=== PATIENT | male | born 1955 | race Caucasian/White ===

== ENCOUNTER → 2022-02-21 | Outpatient (CLI) | payer MEDICARE ==
--- NOTE | 2022-02-22 08:14 | MR ---
EXAMINATION TYPE: MR lumbar spine wo con DATE OF EXAM: 02/21/2022 8:14 PM COMPARISON: None. CLINICAL INDICATION:Male, 66 years old with history of M47.896 SPONDYLOSIS, LUMBAR; TECHNIQUE: Multi planar, multi sequence imaging was performed utilizing: T1-weighted, T2-weighted, a nd turbo inversion recovery imaging of the lumbar spine. IV Contrast: None FINDINGS: Alignment: The lumbar vertebral bodies have preserved heights with grade 1 anterolisthesis of L5 on S 1 and L4 on L5. Cord: The conus medullaris and the distal spinal cord appear unremarkable with regards to their signa l intensity and morphology. Bones/Discs: Mild multilevel disc degeneration changes with osteophyte formation is present. There is mild disc desiccation in the lower lumbar spine. Multilevel degenerative disc disease is noted and m ost pronounced at the L4-L5 and S1. Mild subtle increased STIR signal within the left pedicle of L5 L1-L2: No significant disc pathology. Spinal canal is patent. The neural foramen are patent. Facet jose alberto int arthropathy is present. L2-L3: No significant disc pathology. Spinal canal is patent. The neural foramen are patent. Facet jose alberto int arthropathy is present. L3-L4: No significant disc pathology. Spinal canal is patent. The neural foramen are patent. Facet jose alberto int arthropathy is present. L4-L5: Grade 1 anterolisthesis at this level. There is disc uncovering. No significant spinal canal s tenosis. Ligamentum flavum hypertrophy and facet joint arthropathy result in mild bilateral neural fo raminal stenosis. L5-S1: Grade 1 anterolisthesis at this level. There is disc uncovering and facet joint arthropathy re sulting in moderate spinal canal stenosis with cauda equina bunching and mild bilateral neural forami nal stenosis. Other findings: High T2 signal renal cysts are present the largest on the left. IMPRESSION: 1. No definitive evidence of disc herniation. 2. Moderate spinal canal stenosis at the level L5-S1 with bunching of the cauda equina secondary to disc uncovering, ligamentum flavum 3. Mild left L5 pedicle reactive bony edema. Findings likely secondary to grade 1 anterolisthesis at this level. 4. Multilevel disc degeneration with associated osteoarthritic changes.
== END | disposition home or self-care (01) ==
LOC: RADMRIMAIN 19:27
PROVIDERS: ATTEND Anesthesiology
DX: M48.061 Spinal stenosis, lumbar region without neurogenic claudication (principal); M51.36 Other intervertebral disc degeneration, lumbar region; M47.816 Spondylosis without myelopathy or radiculopathy, lumbar region; R60.0 Localized edema
CPT/HCPCS: 72148